=== PATIENT | female | born 1990 | race Caucasian/White ===

== ENCOUNTER 2019-10-28 10:50 | Emergency (ER) | payer OTHER, SELFPAY ==
[2019-10-28 11:02] VITALS: BP 128/85; PULSE 96; RESP 16; TEMP 37.3; O2SAT 98
--- NOTE | 2019-10-28 11:05 | ED.URI ---
HPI - URI/Sore Throat General Chief Complaint: Upper Respiratory Infection Stated Complaint: sore throat cough Time Seen by Provider: 10/28/19 11:05 Source: patient and RN notes reviewed History of Present Illness HPI Narrative: Patient is a 29-year-old female presents the urgent care with complaints of sore throat, cough, fever. Patient states the fever started last night but her other symptoms have been ongoing for 4 days to 1 week. Patient states that she started taking Tylenol, ibuprofen, NyQuil for her symptoms. States that she was exposed to the flu and did not have a flu shot. No other acute complaints. No acute distress noted. Patient read the plan of care. Related Data Allergies Allergy/AdvReac Type Severity Reaction Status Date / Time No Known Allergies Allergy Verified 10/28/19 11:17 Review of Systems Review of Systems: Narrative: CONSTITUTIONAL: Reports of fevers EYES: Denies visual changes, redness, or discharge. ENT: Reports of sore throat CARDIOVASCULAR: Denies chest pain, palpitations, or edema. RESPIRATORY: Reports of cough without dyspnea GASTROINTESTINAL: Denies abdominal pain, nausea, vomiting, or diarrhea. GENITOURINARY: Denies dysuria or hematuria. SKIN: Denies rash or itching. MUSCULOSKELETAL: Denies back pain, joint pain, or myalgia. NEUROLOGIC: Denies headache, numbness, or weakness. PMFSH Social History Social History Smoking status: Never smoker Alcohol intake: current Comments At the time of my signature, I reviewed and agree with the nursing past medical, surgical, social, and family history. There is no relevant family history pertinent to the patient complaint. Exam Narrative: Exam Narrative: GENERAL: This is a well-nourished, well-developed patient, appears slightly flushed and fatigued HEAD: normocephalic, atraumatic. EYES: PERRL. Sclera clear/white. Vision is grossly intact. EARS: External ears normal, auditory canals clear and without drainage, TMs normal without perforation. Hearing grossly intact. NOSE: External nose normal with no obvious nasal discharge, bilateral erythemic nares with clear rhinorrhea THROAT: Mucous membranes moist, posterior pharynx clear. Mild postnasal drainage NECK: Neck supple CARDIOVASCULAR: Regular rate and rhythm without murmurs, gallops, or rubs. RESPIRATORY: Clear to auscultation. Breath sounds equal bilaterally. No wheezes, rales, or rhonchi. SKIN: warm, intact with no suspicious lesions or rash, good texture and turgor. NEURO: awake, alert, and oriented to person, place and time. There were no obvious focal neurologic abnormalities. EXTREMITIES: No clubbing, cyanosis, or edema. Course Vital Signs Vital signs: Vital Signs Temperature 99.1 F 10/28/19 11:02 Pulse Rate 96 10/28/19 11:02 Respiratory Rate 16 10/28/19 11:02 Blood Pressure 128/85 10/28/19 11:02 Pulse Oximetry 98 10/28/19 11:02 Temperature 99.1 F 10/28/19 11:02 Pulse Rate 96 10/28/19 11:02 Respiratory Rate 16 10/28/19 11:02 Blood Pressure 128/85 10/28/19 11:02 Pulse Oximetry 98 10/28/19 11:02 Reviewed MDM - URI/Sore Throat MDM Narrative Medical decision making narrative: Reviewed lab results with the patient. Patient is aware that she is influenza B positive. Treat symptoms with vmmk-ath-kelsmlk medication such as Robitussin/Delsym for cough, Claritin for allergy-like symptoms, Flonase for nasal congestion, Tylenol/Motrin for fever/body aches. Increase fluids, especially water and rest. Use a humidifier. Be aware of symptoms of dehydration such as lethargy, confusion, increased weakness, dry lips, dry eyes. Follow-up with PCP within 2-5 days or for worsening symptoms or failure to improve. Differential Diagnosis Differential diagnosis: Likely upper respiratory infection, otitis media, sinusitis, viral infection, bronchitis, influenza and pharyngitis Lab Data Attestation: I reviewed the rashad
== END 2019-10-28 11:27 | disposition home or self-care (01) ==
PROVIDERS: Emergency Provider Nurse Practitioner Family; PCP Family Medicine
DX: J11.1 Influenza due to unidentified influenza virus with other respiratory manifestations (principal)
CPT/HCPCS: 87804; 99212; G0463

== ENCOUNTER 2020-12-11 09:54 | Emergency (ER) | payer OTHER, SELFPAY ==
--- NOTE | ~2020-12-11 | XR_ITS ---
EXAMINATION: XR ankle LT min 3V DATE: 12/11/2020 10:18 INDICATION: Lateral left ankle pain 5 days post injury TECHNIQUE: Anteroposterior, oblique, mortise, and lateral views of the left ankle were obtained. COMPARISON: None. FINDINGS: Alignment is normal. Tiny calcific density projecting along the lateral margin of the talus and calca neus on the AP projection without a definitive donor site, nonetheless suspicious for a flake-like av ulsion fracture fragment. No other lesions suspicious for fracture identified. Joint spaces are well maintained. No ankle joint effusion. Small bone island at the lateral malleolus. Mild soft tissue sw elling about the lateral malleolus and along the dorsal lateral aspect of the and hindfoot. IMPRESSION: 1. Tiny likely avulsion fracture fragment at the lateral aspect of the hindfoot which could involve t he footplate on one of the stabilizing ligaments of the ankle/hindfoot including the anterior talofib ular, calcaneofibular or bifurcate ligaments. Reviewed, dictated and finalized at location B. IMPRESSION: 1. Tiny likely avulsion fracture fragment at the lateral aspect of the hindfoot which could involve the footplate on one of the stabilizing ligaments of the a nkle/hindfoot including the anterior talofibular, calcaneofibular or bifurcate ligaments.
[2020-12-11 09:59] VITALS: BP 149/94; PULSE 85; RESP 18; TEMP 36.1; O2SAT 97
--- NOTE | 2020-12-11 09:59 | ED.LOWEXIN ---
HPI - Extremity Injury (Lower) General Chief Complaint: Extremity Injury, Lower Stated Complaint: left ankle injury Time Seen by Provider: 12/11/20 09:59 Source: patient and RN notes reviewed Mode of arrival: ambulatory Limitations: no limitations History of Present Illness HPI Narrative: 30-year-old female presents to the [facility] with complaints of left ankle pain after twisting it on Friday, 5 days ago. Still complaining of pain, swelling and bruising. Currently in a brace. Was evaluated at [facility] urgent care. Related Data Allergies Allergy/AdvReac Type Severity Reaction Status Date / Time No Known Allergies Allergy Verified 11/20/20 14:16 Review of Systems Review of Systems: Narrative: CONSTITUTIONAL: Denies fever, chills, or sweats. EYES: Denies visual changes, redness, or discharge. ENT: Denies rhinorrhea, congestion, sore throat, or otalgia. CARDIOVASCULAR: Denies chest pain, palpitations, or edema. RESPIRATORY: Denies cough or dyspnea. GASTROINTESTINAL: Denies abdominal pain, nausea, vomiting, or diarrhea. GENITOURINARY: Denies dysuria or hematuria. SKIN: Denies rash or itching. MUSCULOSKELETAL: Denies back pain, myalgia. Left lateral ankle pain NEUROLOGIC: Denies headache, numbness, or weakness. PSYCHIATRIC: Denies anxiety or depression. All other systems reviewed are negative, except as documented in HPI. PMFSH Past Medical History Medical History Anxiety Depression Encounter for long-term (current) use of other medications Family history of osteoporosis Surgical History Surgical History History of ear surgery Family History Family History Mother Diabetes mellitus Mother Diabetes mellitus Father Kidney disease Liver disease Social History Social History Smoking status: Never smoker Alcohol intake: current Gender identity (if verbalized by the patient): Female Comments At the time of my signature, I reviewed and agree with the nursing past medical, surgical, social, and family history. There is no relevant family history pertinent to the patient complaint. Exam Narrative: Exam Narrative: GENERAL: This is a well-nourished, well-developed patient, in no apparent distress. HEAD: normocephalic, atraumatic. EYES: PERRL. Sclera clear/white. Vision is grossly intact. EARS: External ears normal. NECK: Neck supple, non-tender. CARDIOVASCULAR: Regular rate and rhythm without murmurs, gallops, or rubs. RESPIRATORY: Clear to auscultation. Breath sounds equal bilaterally. No wheezes, rales, or rhonchi. GASTROINTESTINAL: Abdomen soft, non-tender. SKIN: warm, intact with no suspicious lesions or rash, good texture and turgor. NEURO: awake, alert, and oriented to person, place and time. There were no obvious focal neurologic abnormalities. EXTREMITIES: Left ankle joint tenderness with bruising and swelling noted. No calf tenderness. Negative Homans sign bilaterally. Positive pedal pulse noted. Sensation intact in all 5 toes distal to injury. A refill under 2 seconds BACK: Nontender without deformity. 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
== END 2020-12-11 11:15 | disposition home or self-care (01) ==
PROVIDERS: Emergency Provider Nurse Practitioner; PCP Family Medicine
DX: S92.902A Unspecified fracture of left foot, initial encounter for closed fracture (principal); X50.9XXA Other and unspecified overexertion or strenuous movements or postures, initial encounter; F41.9 Anxiety disorder, unspecified; F32.9 Major depressive disorder, single episode, unspecified
CPT/HCPCS: 29515; 73610; 99214; G0463

== ENCOUNTER 2021-01-11 11:06 | Outpatient (CLI) | payer OTHER, SELFPAY ==
[2021-01-11 19:47] LABS: Add Urine Microscopic? NO; Appearance Urine Clear (Clear); Bilirubin Urine Negative (Negative); Blood Urine Negative (Negative); Color Urine Yellow (Yellow); Glucose Urine UA Negative (Negative); Ketones Urine Negative (Negative); Leukocyte Esterase Ur Negative LEU/UL (Negative); Nitrate Urine Negative (Negative); Protein Urine Negative (Negative); Specific Grav Ur 1.014 (1.001-1.035); Urobilinogen Urine Negative mg/dL (<2.0)
== END 2021-01-11 11:07 | disposition home or self-care (01) ==
LOC: ANHBWCLAB 11:09
PROVIDERS: PCP Family Medicine; Visit Provider Family Medicine
DX: F41.9 Anxiety disorder, unspecified (principal); L70.9 Acne, unspecified; Z79.899 Other long term (current) drug therapy; Z82.62 Family history of osteoporosis
CPT/HCPCS: 81003

== ENCOUNTER 2021-01-16 10:55 | Outpatient (CLI) | payer OTHER, SELFPAY ==
[2021-01-16 18:26] LABS: Basophils Absolute Auto 0.1 K/mm3 (0.0-0.1); Basophils Percent Auto 1.4 % (0.2-1.2); Eosinophils Absolute Auto 0.2 K/mm3 (0-0.3); Eosinophils Percent Auto 3.2 % (0-4.4); Hematocrit 38.3 % (37.0-47.0); Hemoglobin 12.5 g/dL (12.0-15.0); Immature Granulocyte Absolute 0.01 K/mm3 (0.00-0.031); Immature Granulocyte Percent A 0.2 % (0-0.5); Mean Corpuscular HGB Conc 32.6 g/dl (32-36); Mean Corpuscular Volume 85.7 fl (80-100); Mean Platelet Volume 9.8 fl (7.4-10.4); Monocytes Absolute Auto 0.3 K/mm3 (0.1-0.6); Neutrophils Absolute Auto 2.8 K/mm3 (1.3-6.7); Neutrophils Percent Auto 55.2 % (45.5-73.1); Platelet Count Result 234 k/mm3 (150-375); Red Blood Count 4.47 M/mm3 (4.2-5.4); Red Cell Distribution Width 13.6 % (11.5-14.5)
[2021-01-16 18:32] LABS: Alanine Aminotransferase 24 U/L (4-35); Albumin Level 4.8 g/dL (3.5-5.1); Alkaline Phosphatase 92 U/L (38-126); Anion Gap 8 mmol/L (8-16); Aspartate Amino Transferase 29 U/L (14-36); Bilirubin,Total 0.3 mg/dL (0.2-1.3); Blood Urea Nitrogen 10 mg/dL (7-17); Calcium 9.5 mg/dL (8.4-10.2); Carbon Dioxide 27 mmol/L (22-30); Chloride 104 mmol/L (98-107); Estimated Glomerular Filt Rate > 60; Glucose 104 mg/dL (65-105); Magnesium 1.8 mg/dL (1.6-2.3); Potassium 4.2 mmol/L (3.4-5.0); Sodium 139 mmol/L (137-145)
[2021-01-16 18:50] LABS: Vitamin D 25 Hydroxy 29.2 ng/mL
== END 2021-01-16 10:56 | disposition home or self-care (01) ==
LOC: ANHBWCLAB 10:57
PROVIDERS: PCP Family Medicine; Visit Provider Family Medicine
DX: L70.9 Acne, unspecified (principal); F41.9 Anxiety disorder, unspecified; Z79.899 Other long term (current) drug therapy
CPT/HCPCS: 36415; 80053; 82306; 83735; 84443; 85025

== ENCOUNTER 2022-07-26 10:14 | Emergency (ER) | payer BC, SELFPAY ==
[2022-07-26 10:19] VITALS: BP 143/90; PULSE 85; RESP 18; TEMP 36.7; O2SAT 99
--- NOTE | 2022-07-26 10:28 | ED.BACK ---
HPI - Back Pain/Injury General Chief Complaint: Back Pain/Injury Stated Complaint: lower back pain Time Seen by Provider: 07/26/22 10:28 Source: patient, RN notes reviewed and old records reviewed Mode of arrival: ambulatory Limitations: no limitations History of Present Illness HPI Narrative: 32 year old female presents to [facility] care with complaints of mid lumbar sacral back pain for the past 4 days with no known specific injury. Patient reports that she does do a lot of lifting and bending at work. Patient reports that she has been taking Ibuprofen and warm baths and has tried to take it easy, and used icy hot, but pain has not resolved. Patient reports that pain increases when she lays own and when she sits, denies any radiation of pain to legs or any tingling or numbness to legs.Patient reports no difficulty with passing her urine or stool, denies any saddle paraesthesia. MD elicited complaint: back pain Onset (ago): day(s) (4) Pain scale (0-10): 5 Treatments prior to arrival: NSAIDS and other (icy hot) Related Data Allergies Allergy/AdvReac Type Severity Reaction Status Date / Time No Known Allergies Allergy Verified 07/26/22 10:16 Review of Systems Review of Systems: CONSTITUTIONAL: Denies fever, chills, or sweats. CARDIOVASCULAR: Denies chest pain, palpitations, or edema. RESPIRATORY: Denies cough or dyspnea. GASTROINTESTINAL: Denies abdominal pain, nausea, vomiting, or diarrhea. GENITOURINARY: Denies dysuria or hematuria. SKIN: Denies rash or itching. MUSCULOSKELETAL: Reports mid lumbar sacral back pain. Reports no other joint pain or myalgia. NEUROLOGIC: Denies headache, numbness, or weakness. All systems reviewed & are unremarkable except as noted in HPI and below PMFSH Past Medical History Medical History Anxiety Depression Encounter for long-term (current) use of other medications Family history of osteoporosis Surgical History Surgical History History of ear surgery Family History Family History Mother Diabetes mellitus Mother Diabetes mellitus Father Kidney disease Liver disease Social History Social History (Reviewed 12/11/20 @ 18:19 by QuinLINDSEY Rhodes Smoking status: Never smoker Alcohol intake: current Gender identity (if verbalized by the patient): Female Comments At time of signature, agree with nursing past medical, surgical, social and family history. There is no relevant family history pertinent to the presenting complaint Exam Narrative: GENERAL: Well-appearing, well-nourished, and in no acute distress. HEAD: Normocephalic, atraumatic. EYES: PERRLA and EOMI. NECK: Supple. No lymphadenopathy. CHEST: Clear to auscultation. No respiratory distress. HEART: Regular rate and rhythm. Distal pulses palpable and equal, cap refill <3 seconds ABDOMEN: Soft, nontender, nondistended, normal active bowel sounds, no palpable or pulsatile masses. No CVA tenderness MUSCULOSKELETAL: Normal range of motion and strength in all extremities; 5/5 strength with hip flexion and extension, dorsiflexion and extension, knee flexion and extension, plantar flexion and extension. Normal sensation in dermatomal distributions with sensitivity to light touch and pain. No midline back tenderness to palpation. No paraspinal tenderness. Transfers from lying to sitting to standing. SKIN: Warm, dry, no rash. No ecchymosis, erythema, open wounds to back. NEURO: No focal deficits. Alert and oriented x3. Reflexes intact. Normal gait. PSYCH: Normal mood and affect Course Course Emergency Course: Patient is aware of diagnosis, understands and agrees to treatment plan. Anticipatory guidance given. Patient agrees to follow-up as directed and is aware of reasons to seek care at the emergency department. Portions of this record may have been created
== END 2022-07-26 10:45 | disposition home or self-care (01) ==
PROVIDERS: Emergency Provider Registered Nurse; PCP Family Medicine
DX: S39.012A Strain of muscle, fascia and tendon of lower back, initial encounter (principal); X50.0XXA Overexertion from strenuous movement or load, initial encounter
CPT/HCPCS: 99213; G0463

== ENCOUNTER 2022-12-23 10:06 | Outpatient (CLI) | payer OTHER, SELFPAY ==
[2022-12-23 19:31] LABS: Alanine Aminotransferase 20 U/L (6-35); Albumin Level 4.5 g/dL (3.5-5.1); Alkaline Phosphatase 98 U/L (38-126); Anion Gap 6 mmol/L (8-16); Aspartate Amino Transferase 58 U/L (14-36); Bilirubin,Total 0.5 mg/dL (0.2-1.3); Blood Urea Nitrogen 8 mg/dL (7-17); Carbon Dioxide 31 mmol/L (22-30); Chloride 103 mmol/L (98-107); Cholesterol 147 mg/dL (0-200); Estimated Glomerular Filt Rate > 60; Glucose 99 mg/dL (65-110); HDL Direct 44 mg/dL; Potassium 3.8 mmol/L (3.4-5.0); Sodium 140 mmol/L (137-145); Triglycerides 95 mg/dL (<150)
[2022-12-23 19:43] LABS: LDL Cholesterol Direct 69 mg/dL
[2022-12-23 19:49] LABS: Vitamin D 25 Hydroxy 29.6 ng/mL
[2022-12-23 20:36] LABS: Basophils Absolute Auto 0.1 K/mm3 (0.0-0.1); Basophils Percent Auto 1.5 % (0.2-1.2); Eosinophils Absolute Auto 0.2 K/mm3 (0-0.3); Eosinophils Percent Auto 4.6 % (0-4.4); Hematocrit 38.5 % (37.0-47.0); Hemoglobin 12.1 g/dL (12.0-15.0); Immature Granulocyte Absolute 0.01 K/mm3 (0.00-0.031); Immature Granulocyte Percent A 0.2 % (0-0.5); Lymphocytes Percent Auto 27.4 % (18.3-44.2); Mean Corpuscular HGB Conc 31.4 g/dl (32-36); Mean Corpuscular Hemoglobin 27.5 pg (26-34); Mean Corpuscular Volume 87.5 fl (80-100); Mean Platelet Volume 9.9 fl (7.4-10.4); Monocytes Absolute Auto 0.3 K/mm3 (0.1-0.6); Monocytes Percent Auto 6.1 % (2.6-8.5); Neutrophils Absolute Auto 2.9 K/mm3 (1.3-6.7); Neutrophils Percent Auto 60.2 % (45.5-73.1); Platelet Count Result 254 k/mm3 (150-375); Red Cell Distribution Width 13.9 % (11.5-14.5); White Blood Count 4.7 K/mm3 (4.5-10.0)
== END 2022-12-23 10:07 | disposition home or self-care (01) ==
LOC: ANHBWCLAB 10:07
PROVIDERS: PCP Family Medicine; Visit Provider Family Medicine
DX: Z00.00 Encounter for general adult medical examination without abnormal findings (principal); R63.5 Abnormal weight gain; E55.9 Vitamin D deficiency, unspecified
CPT/HCPCS: 36415; 80053; 80061; 82306; 84443; 85025

== ENCOUNTER 2023-04-10 11:11 | Outpatient (CLI) | payer OTHER, SELFPAY | END 2023-04-10 11:12 | disposition home or self-care (01) | LOC: ANHBWCLAB 11:13 | PROVIDERS: PCP Nurse Practitioner Adult Health; Visit Provider Nurse Practitioner Adult Health | DX: R79.89 Other specified abnormal findings of blood chemistry (principal) | CPT/HCPCS: 36415; 84443 ==

== ENCOUNTER 2023-11-28 12:14 | Emergency (ER) | payer OTHER, SELFPAY ==
--- NOTE | ~2023-11-28 | XR_ITS ---
EXAMINATION: XR knee RT min 4V DATE: 11/28/2023 12:36 INDICATION: Right knee injury and pain. TECHNIQUE: 4 views of right knee were obtained. COMPARISON: None. FINDINGS: Bone alignment is normal. No fracture. There is mild tricompartmental osteoarthritis. No kn ee joint effusion. IMPRESSION: 1. Mild right knee osteoarthritis. Reviewed, dictated and finalized at location A. [facility] [employer]
[2023-11-28 12:23] VITALS: BP 135/87; PULSE 92; RESP 16; TEMP 36.8; O2SAT 99
--- NOTE | 2023-11-28 12:49 | ED.LOWEXIN ---
HPI - Extremity Injury (Lower) General Chief Complaint: Extremity Injury, Lower Stated Complaint: Fall Injury/Right Knee Injury Time Seen by Provider: 11/28/23 13:04 Source: patient and RN notes reviewed Mode of arrival: ambulatory Limitations: no limitations History of Present Illness HPI Narrative: 33-year-old female presents concern for right knee pain and swelling. Reports she fell yesterday injuring her knee. She reports medial pain and swelling, she has been using crutches. She reports stiffness. Denies open skin. Reports minimal pain at rest, worsening pain with weight-bearing MD complaint: knee injury Related Data Allergies Allergy/AdvReac Type Severity Reaction Status Date / Time No Known Allergies Allergy Verified 11/28/23 12:52 Review of Systems Review of Systems: CONSTITUTIONAL: Denies malaise, chills, sweats, or fever. SKIN: Denies rash or itching, open skin, laceration, abrasion, redness, warmth MUSCULOSKELETAL: Reports right knee pain and swelling NEUROLOGIC: Denies numbness, weakness All systems reviewed & are unremarkable except as noted in HPI and below PMFSH Past Medical History Medical History Anxiety Depression Encounter for long-term (current) use of other medications Family history of osteoporosis Surgical History Surgical History History of ear surgery Family History Family History Mother Diabetes mellitus Mother Diabetes mellitus Father Kidney disease Liver disease Social History Social History Smoking status: Never smoker Alcohol intake: current Lack of Transportation: No Lack of Food: Never True Current Housing: I Have Housing Concerned About Future Housing: No Difficulty Paying Gas/Electric Bills: No Difficulty Paying for Meds: No Currently Unemployed: No Education: Associate Degree Difficulty w/ Childcare or Family Care: No Living arrangements: with family Gender identity (if verbalized by the patient): Female Comments At time of signature, agree with nursing past medical, surgical, social and family history. There is no relevant family history pertinent to the presenting complaint Exam Narrative: GENERAL: Well-appearing, well-nourished, and in no acute distress. HEAD: Normocephalic, atraumatic. EYES: PERRLA, conjunctivae clear NECK: Supple. CHEST: Speaks in full sentences. No respiratory distress. HEART: Regular rate and rhythm. Normal and equal peripheral pulses. EXTREMITIES: Right knee has gross normal strength and sensation, limited range of motion. Mild medial edema, no erythema or ecchymosis. Normal sensation with sensitivity to light touch and pain. No point tenderness. No open wounds, no skin tenting, no devitalized tissue or atrophy, no trophic changes, no obvious deformity, alignment normal, nearby joints and structures intact. Distal pulses palpable and equal bilaterally, skin warm, dry, pink. Capillary refill less than 3 seconds. SKIN: Warm, dry, no rash. NEURO: Alert and oriented x3. PSYCH: Normal mood and affect Course Course Emergency Course: Patient is aware of diagnosis, understands and agrees to treatment plan. Anticipatory guidance given. Patient agrees to follow-up as directed and is aware of reasons to seek care at the emergency department. Portions of this record may have been created with voice recognition software Level of Care: Express Care Visit Vital Signs Vital signs: Vital Signs Temperature 98.3 F 11/28/23 12:23 Pulse Rate 92 11/28/23 12:23 Respiratory Rate 16 11/28/23 12:23 Blood Pressure 135/87 11/28/23 12:23 Pulse Oximetry 99 11/28/23 12:23 Oxygen Delivery Room Air 11/28/23 12:23 Temperature 98.3 F 11/28/23 12:23 Pulse Rate 92 0
== END 2023-11-28 13:16 | disposition home or self-care (01) ==
PROVIDERS: Emergency Provider Nurse Practitioner; PCP Family Medicine
DX: S89.91XA Unspecified injury of right lower leg, initial encounter (principal); W19.XXXA Unspecified fall, initial encounter; F41.9 Anxiety disorder, unspecified; F32.A Depression, unspecified
CPT/HCPCS: 73564; 99213; G0463